=== PATIENT | male | born 1985 ===

== ENCOUNTER 2020-06-26 02:25 | Emergency (ER) | payer OTHER ==
[~2020-06-26] VITALS: Ht 185.4 cm; Wt 83.9 kg
[2020-06-26] MEDS ORDERED: LIDOCAINE HCL 1% LOCAL INJ 20 ML VIAL ONE (04:41)
[2020-06-26] MEDS ORDERED: CEFTRIAXONE SOD 1 GM VIAL ONE (04:41)
== END 2020-06-26 04:45 | disposition home or self-care (01) ==
LOC: FSED 03:11
DX: M54.5 Low back pain (principal); N30.01 Acute cystitis with hematuria
CPT/HCPCS: 74176; 99283; J0696; J2001